=== PATIENT | female | born 1980 | race African-American/Black ===

== ENCOUNTER 2022-08-31 15:10 | Emergency (ER) | payer OTHER ==
[~2022-08-31] VITALS: Ht 162.6 cm; Wt 97.0 kg
[~2022-08-31 15:10] MED LIST: GABA-532 MT; IBUP-2029 PO; METF-414 MT; METF-414 PO
[2022-08-31 16:06] VITALS: BP 155/81
== END 2022-08-31 18:35 | disposition home or self-care (01) ==
LOC: ER 15:10
DX: Z48.02 Encounter for removal of sutures (principal)
CPT/HCPCS: 99281; Z7610

== ENCOUNTER 2025-01-25 10:15 | Emergency (ER) | payer MEDICAID, OTHER ==
[~2025-01-25] VITALS: Ht 162.6 cm; Wt 91.0 kg
[~2025-01-25 10:15] MED LIST changes: +GABA-1180 MT; -GABA-532 MT
[2025-01-25 10:22] VITALS: O2SAT 99
[2025-01-25] MEDS ORDERED: CALA177S9 TP (10:41)
[2025-01-25] MEDS ORDERED: IVER3TAB2 MT (10:41)
[2025-01-25 11:05] VITALS: BP 135/89; PULSE 101; RESP 22; TEMP 36.7; O2SAT 99
[2025-01-29] MEDS ORDERED: ELIMC TP (22:14)
[2025-01-29] MEDS ORDERED: AMOX1TAB16 MT (22:25)
== END 2025-01-25 11:06 | disposition home or self-care (01) ==
LOC: ER 10:15
DX: B86 Scabies (principal); E11.9 Type 2 diabetes mellitus without complications; I10 Essential (primary) hypertension; Z79.84 Long term (current) use of oral hypoglycemic drugs
CPT/HCPCS: 99283